=== PATIENT | male | born 1945 | race African-American/Black ===

== ENCOUNTER 2024-10-07 11:40 | Emergency (ER) | payer OTHER ==
[~2024-10-07] VITALS: Ht 170.2 cm; Wt 90.0 kg
[2024-10-07 11:43] VITALS: O2SAT 94
[2024-10-07] MEDS: KETOROLAC 30MG/ML VIAL IM ONE (13:17)
[2024-10-07] MEDS: LIDOCAINE HCL 1% 20ML VIAL INFIL ONE (14:03)
[2024-10-07 15:00] VITALS: BP 135/89; PULSE 89; RESP 18; TEMP 36.72516; O2SAT 95
== END 2024-10-07 15:38 | disposition home or self-care (01) ==
LOC: ER 11:40
DX: M62.838 Other muscle spasm (principal); J44.9 Chronic obstructive pulmonary disease, unspecified; I48.91 Unspecified atrial fibrillation; Z85.118 Personal history of other malignant neoplasm of bronchus and lung; Z88.2 Allergy status to sulfonamides; Z88.1 Allergy status to other antibiotic agents
CPT/HCPCS: 20552; 99284; J1885; J3490; Z7610; 96372; 99283